=== PATIENT | male | born 1965 | race Caucasian/White ===

== ENCOUNTER → 2024-07-24 08:21 | Outpatient (REF) | payer OTHER, SELFPAY | LOC: RST 08:21 | PROVIDERS: ATTENDING PHYSICIAN Nurse Practitioner | DX: R13.10 Dysphagia, unspecified (principal) | CPT/HCPCS: 74230; 92611 ==

== ENCOUNTER 2024-12-21 07:44 | Day surgery (SDC) | payer OTHER, SELFPAY | END 2024-12-21 14:04 | disposition home or self-care (01) | LOC: GI 07:44 | PROVIDERS: ATTENDING PHYSICIAN Internal Medicine Gastroenterology | DX: R13.10 Dysphagia, unspecified (principal); K44.9 Diaphragmatic hernia without obstruction or gangrene; K22.89 Other specified disease of esophagus; K22.2 Esophageal obstruction; K29.70 Gastritis, unspecified, without bleeding; K31.89 Other diseases of stomach and duodenum | CPT/HCPCS: 43249; 43239; 88305; 88342 ==